=== PATIENT | female | born 1940 | race Caucasian/White ===

== ENCOUNTER 2022-05-20 14:24 | Emergency (ER) | payer MEDICARE, OTHER, SELFPAY ==
--- NOTE | 2022-05-20 14:30 | ED.UPPEXIN ---
HPI - Extremity Injury (Upper) General Chief Complaint: Extremity Injury, Upper Stated Complaint: Right Arm Swelling Time Seen by Provider: 05/20/22 14:30 Source: patient, family and RN notes reviewed History of Present Illness HPI narrative: Patient is an 82-year-old female who presents the urgent care with her spouse with complaints of left arm swelling. Patient states that she woke up with swelling near the elbow and the left lower arm this morning. Patient believes she may have gotten stung last night while sleeping. Patient is currently on doxycycline for the last 3 days for a cough from her primary care provider. Patient has not done anything [id number] for her swelling. Denies of any fevers, nausea or vomiting. Denies of any known injury to the arm. Patient is right-hand dominant. No other acute complaints. No acute distress noted. Patient read the plan of care. Some parts of this dictation were generated by voice recognition software and may contain typographical and/or grammatical inaccuracies. Related Data Home Medications Medication Instructions Recorded Confirmed albuterol sulfate 90 mcg/actuation 2 puff inhalation Q4-6H PRN 05/20/22 05/20/22 aerosol inhaler (ProAir HFA) Shortness Of Breath cetirizine 10 mg tablet 10 mg PO DAILY 05/20/22 05/20/22 doxycycline hyclate 100 mg capsule 100 mg PO BID 05/20/22 05/20/22 fluticasone propionate 50 50 mcg intranasal DAILY 05/20/22 05/20/22 mcg/actuation nasal spray,suspension furosemide 20 mg tablet 20 mg PO BID 05/20/22 05/20/22 hydrochlorothiazide 25 mg tablet 25 mg PO DAILY 05/20/22 05/20/22 hydrocodone 5 mg-acetaminophen 325 1 tablet PO TID PRN Pain 05/20/22 05/20/22 mg tablet isosorbide mononitrate 60 mg 60 mg PO DAILY 05/20/22 05/20/22 tablet,extended release 24 hr levothyroxine 100 mcg tablet 100 mcg PO DAILY 05/20/22 05/20/22 (Synthroid) metoprolol succinate 25 mg 25 mg PO DAILY 05/20/22 05/20/22 tablet,extended release 24 hr omeprazole 20 mg capsule,delayed 20 mg PO DAILY 05/20/22 05/20/22 release simvastatin 20 mg tablet 20 mg PO DAILY 05/20/22 05/20/22 Allergies Allergy/AdvReac Type Severity Reaction Status Date / Time No Known Allergies Allergy Verified 05/20/22 14:51 Review of Systems Review of Systems: CONSTITUTIONAL: Denies fever, chills, or sweats. EYES: Denies visual changes, redness, or discharge. ENT: Denies rhinorrhea, congestion, sore throat, or otalgia. CARDIOVASCULAR: Denies chest pain, palpitations, or edema. RESPIRATORY: Denies cough or dyspnea. GASTROINTESTINAL: Denies abdominal pain, nausea, vomiting, or diarrhea. GENITOURINARY: Denies dysuria or hematuria. SKIN: Reports of redness and swelling of the left elbow and left lower arm MUSCULOSKELETAL: Denies back pain, joint pain, or myalgia. NEUROLOGIC: Denies headache, numbness, or weakness. All other systems reviewed are negative, except as documented in HPI. PMFSH Comments At the time of my signature, I reviewed and agree with the nursing past medical, surgical, social, and family history. There is no relevant family history pertinent to the patient complaint. Exam Narrative: GENERAL: This is a well-nourished, well-developed patient, in no apparent distress. HEAD: normocephalic, atraumatic. EYES: PERRL. Sclera clear/white. Vision is grossly intact. EARS: External ears normal NOSE: External nose normal with no obvious nasal discharge, nares without redness, no rhinorrhea. THROAT: Mucous membranes moist NECK: Neck supple CARDIOVASCULAR: Regular rate and rhythm without murmurs, gallops, or rubs. RESPIRATORY: Clear to auscultation. Breath sounds equal bilaterally. No wheezes, rales, or rhonchi. SKIN: warm, intact with no suspicious lesions or rash, good texture and turgor. NEURO: awake, alert, and oriented to person, place and time. There were no obvious focal neurologic abnormalities. EXTREMITIES: Positive strong left radial pulse with capillary refill less
[2022-05-20 14:34] VITALS: BP 116/52; PULSE 78; RESP 20; TEMP 36.4; O2SAT 95
== END 2022-05-20 15:10 | disposition home or self-care (01) ==
PROVIDERS: Emergency Provider Nurse Practitioner Family; PCP Family Medicine
DX: S40.862A Insect bite (nonvenomous) of left upper arm, initial encounter (principal); W57.XXXA Bitten or stung by nonvenomous insect and other nonvenomous arthropods, initial encounter; E03.9 Hypothyroidism, unspecified; H35.30 Unspecified macular degeneration; Z96.651 Presence of right artificial knee joint; I25.2 Old myocardial infarction
CPT/HCPCS: 99203; G0463